=== PATIENT | female | born 1990 | race Two or more races ===

== ENCOUNTER 2016-09-05 09:32 | Emergency (ER) | payer OTHER ==
[2016-09-05 09:43] VITALS: BP 112/60; PULSE 74; TEMP 98.6; BMI 23.5
[2016-09-05] MEDS ORDERED: ONDANSETRON 4 MG/2 ML VIAL IVPUSH ONE (10:14)
[2016-09-05] MEDS ORDERED: SODIUM CHLORIDE 1,000 ML IV STA (10:14)
[2016-09-05] MEDS ORDERED: ONDANSETRON 4 MG/2 ML VIAL ONE (10:21)
[2016-09-05 10:48] LABS: BASOPHIL 0.5 % (0-2.0); EOSINOPHIL 0.5 % (0-4.5); MCH 28.8 pg (25.7-33.7); MCHC 33.9 g/dl (32.0-36.0); MEAN CELL VOLUME 84.8 fl (80-96); MEAN PLT VOLUME 7.4 fl (7.5-11.1); NEUTROPHILS 73.5 % (42.8-82.8); PLATELET COUNT 249 K/MM3 (134-434); WHITE BLOOD COUNT 9.9 K/mm3 (4.0-10.0)
[2016-09-05 11:11] LABS: ALBUMIN 3.8 g/dl (3.4-5.0); ANION GAP 8 (8-16); BILIRUBIN,TOTAL 0.4 mg/dL (0.2-1.0); CALCIUM 8.6 mg/dL (8.5-10.1); CO2 25 mmol/L (21-32); CREATININE 0.5 mg/dL (0.55-1.02); GLUCOSE,RANDOM 87 mg/dL (74-106); MAGNESIUM 2.1 mg/dL (1.8-2.4); SGOT/AST 19 U/L (15-37); SGPT/ALT 23 U/L (12-78); TOT PROT 7.3 g/dl (6.4-8.2)
[2016-09-05 11:12] LABS: ALK PHOS 86 U/L (45-117)
--- NOTE | 2016-09-05 11:27 | PDOC ---
History of Present Illness - General Chief Complaint: Nausea/Vomiting Stated Complaint: CHEST PAIN, VOMITING Time Seen by Provider: 09/05/16 10:04 History Source: Patient Exam Limitations: No Limitations - History of Present Illness Travel History: No Initial Comments: 09/05/16 10:24 26-year-old female presents to the ED with complaints of nausea and vomiting over the past 3 days without aggravating or relieving factors. Patient also states irregular menses and unsure if she is but denies any fever, chills, vaginal discharge, dysuria, diarrhea, recent travel, recent illness or recent sick contacts. Patient denies GI disorders smoking history, or alcohol use, Timing/Duration: reports: intermittent Quality: reports: mild, cramping Abdominal Pain Onset Location: reports: suprapubic ( midmid) Aggravating Factors: improves with: None Alleviating Factors: improves with: None Past History - Past Medical History Allergies/Adverse Reactions: Allergies Allergy/AdvReac Type Severity Reaction Status Date / Time No Known Allergies Allergy Verified 09/05/16 09:40 Home Medications: Ambulatory Orders NK [No Known Home Medication] 09/05/16 Anemia: Yes Asthma: No Cancer: No Cardiac Disorders: No Diabetes: No HTN: No Seizures: No Thyroid Disease: No - Reproductive History LMP Normal: No (irregular) - Immunization History Immunization Up to Date: Yes - Psycho/Social/Smoking Cessation Hx Anxiety: No Suicidal Ideation: No Smoking Status: No Smoking History: Never smoked Have you smoked in the past 12 months: No Number of Cigarettes Smoked Daily: 0 Information on smoking cessation initiated: No Hx Alcohol Use: No Drug/Substance Use Hx: No Hx Substance Use Treatment: No Patient Lives Alone: No Lives with/in: spouse/SO Review of Systems - Review of Systems Able to Perform ROS?: Yes Constitutional: No: Symptoms Reported HEENTM: No: Symptoms Reported Respiratory: No: Symptoms reported Cardiac (ROS): No: Symptoms Reported ABD/GI: Yes: Nausea, Vomiting, Abdominal cramping : No: Symptoms Reported Musculoskeletal: No: Symptoms Reported Integumentary: No: Symptoms Reported Neurological: No: Symptoms reported *Physical Exam - Vital Signs Last Vital Signs Temp Pulse Resp BP Pulse Ox 98.6 F 74 18 112/60 100 09/05/16 09:41 09/05/16 09:41 09/05/16 09:41 09/05/16 09:41 09/05/16 09:41 - Physical Exam General Appearance: Yes: Nourished, Appropriately Dressed. No: Apparent Distress HEENT: negative: Pale Conjunctivae Neck: positive: Normal Thyroid, Supple Respiratory/Chest: positive: Lungs Clear, Normal Breath Sounds. negative: Respiratory Distress, Accessory Muscle Use Cardiovascular: positive: Regular Rhythm, Regular Rate. negative: Murmur Gastrointestinal/Abdominal: positive: Soft, Tenderness (suprapubic. Mild guarding. No rebound) Musculoskeletal: negative: CVA Tenderness Extremity: positive: Normal Capillary Refill Integumentary: positive: Normal Color, Warm, Moist Neurologic: positive: Motor Strength 5/5 (ambulatory) ED Treatment Course - LABORATORY CBC & Chemistry Diagram: 09/05/16 10:40 09/05/16 10:40 - ADDITIONAL ORDERS Additional order review: Laboratory Results 09/05/16 09/05/16 10:40 10:40 Sodium 137 Potassium 3.9 Chloride 104 Carbon Dioxide 25 Anion Gap 8 BUN 10 D Creatinine 0.5 L Creat Clearance w eGFR > 60 Random Glucose 87 Calcium 8.6 Magnesium Cancelled 2.1 Total Bilirubin 0.4 D AST 19 ALT 23 Alkaline Phosphatase 86 D Total Protein 7.3 Albumin 3.8 09/05/16 10:40 RBC 4.60 MCV 84.8 D MCHC 33.9 RDW 13.0 D MPV 7.4 L D Neutrophils % 73.5 Lymphocytes % 20.6 D Monocytes % 4.9 Eosinophils % 0.5 Basophils % 0.5 - Medications Given in the ED: ED Medications Discontinued Medications Generic Name Dose Route Start Last Admin Trade Name Freq PRN Reason Stop Dose Admin Sodium Chloride 1,000 mls @ 1,000 mls/hr 09/05/16 10:14 09/05/16 10:23 Normal Saline - IV 09/05/16 11:13 1,000 mls/hr ASDIR STA Administration Ondansetron HCl 4 mg 09/05/16 10:14 09/05/16 10:23 Zofran Injection IVPUSH 09/05/16 10:15 4 mg ONCE ONE Administration Medical Decision Making - Medical Decision Making 09/05/16 10:25 Nausea vomiting and irregular menses. Patient on exam had suprapubic tenderness without CVA tenderness. Will rule out UTI, , electrolyte imbalance. .Patient ordered for CBC, comp, magnesium, IV fluids, Zofran urinalysis urine . 09/05/16 11:27 Laboratory Tests 09/05/16 09/05/16 09/05/16 10:40 10:40 10:40 WBC 9.9 Hgb 13.2 D Hct 39.0 D Neutrophils % 73.5 Sodium 137 Potassium 3.9 Chloride 104 Carbon Dioxide 25 Anion Gap 8 BUN 10 D Creatinine 0.5 L Random Glucose 87 Calcium 8.6 Magnesium 2.1 Urine Nitrite Pending Urine HCG, Qual Positive Ordered for beta hCG and will order ultrasound based on patient's clinical exam of suprapubic tenderness. 09/05/16 14:19 Laboratory Tests 09/05/16 10:40 Beta HCG, Quant [id number] patient tolerating crackers and juice. Ultrasound shows an IUP at 5 weeks 6 days with heart rate of 1 50bpm. There is a corpus luteal cyst in the left ovary. No signs of torsion *DC/Admit/Observation/Transfer Diagnosis at time of Disposition: Nausea and vomiting during - Discharge Dispostion Disposition: HOME Condition at time of disposition: Good - Patient Instructions Printed Discharge Instructions: Nausea and Vomiting-Adult, DI for -- Discomforts and Remedies Additional Instructions: Please eat small frequent bland food and drink plenty of water. Please follow-up with your BINDERY MACHINE SETTER to discuss today's visit.
[2016-09-05 11:34] LABS: URINE APPEARANCE CLEAR; URINE BILIRUBIN NEGATIVE (NEGATIVE); URINE BLOOD NEGATIVE (NEGATIVE); URINE COLOR LT. YELLOW; URINE GLUCOSE (UA) NEGATIVE (NEGATIVE); URINE KETONE NEGATIVE (NEGATIVE); URINE LEUK ESTERASE NEGATIVE (NEGATIVE); URINE NITRITE NEGATIVE (NEGATIVE); URINE PROTEIN NEGATIVE (NEGATIVE); URINE UROBILINOGEN 0.2 E.U/dl E.U./dl (0.2-1.0)
== END 2016-09-05 14:52 | disposition home or self-care (01) ==
LOC: JER 09:32
PROC: 3E033GC Introduction of Other Therapeutic Substance into Peripheral Vein, Percutaneous Approach (ICD-10-PCS; principal; 2016-09-05)
DX: O21.0 Mild hyperemesis gravidarum (principal); O34.81 Maternal care for other abnormalities of pelvic organs, first trimester; N83.12 Corpus luteum cyst of left ovary; Z3A.01 Less than 8 weeks gestation of pregnancy
CPT/HCPCS: 36415; 76801-TC; 80053; 81003; 83735; 84702; 84703; 85025; 99283-25

== ENCOUNTER 2016-09-18 12:42 | Emergency (ER) | payer OTHER ==
[2016-09-18 13:13] VITALS: BP 118/62; PULSE 71; TEMP 98.3; BMI 25.7
[2016-09-18] MEDS ORDERED: ONDANSETRON 4 MG/2 ML VIAL ONE (17:08)
--- NOTE | 2016-09-18 17:14 | PDOC ---
History of Present Illness - General Chief Complaint: Pain, Acute Stated Complaint: ABD PAIN, 10 WKS Time Seen by Provider: 09/18/16 16:18 History Source: Patient Exam Limitations: No Limitations - History of Present Illness Initial Comments: 09/18/16 17:23 Patient came to our mid for evaluation of nausea and vomiting worsening over the past few days. Is 10 weeks , has first visit tomorrow. States had hyperemesis with her previous pregnancies, 3 para 2. Is not currently taking any medication, denies fever, bowel changes, any problems with urine. 09/18/16 20:20 Timing/Duration: unsure, constant, getting worse Severity: mild, moderate Associated Symptoms: reports: loss of appetite, malaise, nausea/vomiting. denies: cough, fever/chills Past History - Travel Traveled outside of the country in the last 30 days: No Close contact w/someone who was outside of country & ill: No - Past Medical History Allergies/Adverse Reactions: Allergies Allergy/AdvReac Type Severity Reaction Status Date / Time No Known Allergies Allergy Verified 09/18/16 13:11 Home Medications: Ambulatory Orders NK [No Known Home Medication] 09/05/16 Anemia: Yes Asthma: No Cancer: No Cardiac Disorders: No Diabetes: No HTN: No Seizures: No Thyroid Disease: No - Immunization History Immunization Up to Date: Yes - Psycho/Social/Smoking Cessation Hx Anxiety: No Suicidal Ideation: No Smoking Status: No Smoking History: Never smoked Have you smoked in the past 12 months: No Number of Cigarettes Smoked Daily: 0 Information on smoking cessation initiated: No Hx Alcohol Use: No Drug/Substance Use Hx: No Substance Use Type: None Hx Substance Use Treatment: No Review of Systems - Review of Systems Able to Perform ROS?: Yes Is the patient limited [place] proficient: Yes Constitutional: Yes: Symptoms Reported, See HPI, Loss of Appetite, Malaise, Weakness. No: Fever HEENTM: Yes: See HPI. No: Symptoms Reported Respiratory: Yes: Symptoms reported, See HPI Cardiac (ROS): Yes: See HPI ABD/GI: Yes: Symptoms Reported : No: Symptoms Reported All Other Systems: Reviewed and Negative *Physical Exam - Vital Signs Last Vital Signs Temp Pulse Resp BP Pulse Ox 98.3 F 71 18 118/62 100 09/18/16 13:12 09/18/16 13:12 09/18/16 13:12 09/18/16 13:12 09/18/16 13:12 - Physical Exam General Appearance: Yes: Nourished, Appropriately Dressed, Apparent Distress, Mild Distress HEENT: positive: KALIA, Normal ENT Inspection, Normal Voice, TMs Normal, Pharynx Normal Neck: positive: Supple. negative: Tender Respiratory/Chest: positive: Lungs Clear, Normal Breath Sounds Cardiovascular: positive: Regular Rhythm Gastrointestinal/Abdominal: positive: Normal Bowel Sounds, Tender (some tenderness reproduced with deep palpation to the left upper quadrant and midepigastric area. Patient states is painful when she sits up and uses her stomach musculature. Has no tenderness to the right upper quadrant, no no tenderness to the lower quadrants, no rebound or guarding.), Soft. negative: Distended, Guarding, Rebound Musculoskeletal: positive: Normal Inspection Extremity: positive: Normal Capillary Refill, Normal Inspection Integumentary: positive: Dry, Warm, Pale Neurologic: positive: airplane tester II-XII NML intact, Fully Oriented, Alert, Normal Mood/ Affect, Normal Response, Motor Strength 12/29 ED Treatment Course - LABORATORY CBC & Chemistry Diagram: 09/18/16 17:00 09/18/16 17:00 Medical Decision Making - Medical Decision Making 09/18/16 17:33 Upper emesis, will treat with fluids, Zofran and reevaluate 09/18/16 18:20 09/18/16 20:22 Patient much improved after 2 L of IV fluid, Zofran. Is hungry, and able to tolerate by mouth apple juice and crackers. Will be discharged, and follow-up as planned with her appointment tomorrow. 09/18/16 20:29 *DC/Admit/Observation/Transfer Diagnosis at time of Disposition: Hyperemesis Qualifiers: Vomiting type: unspecified Nausea presence: with nausea Qualified Code(s): R11.2 - Nausea with vomiting, unspecified - Discharge Dispostion Disposition: HOME Condition at time of disposition: Stable Admit: No - Patient Instructions Printed Discharge Instructions: DI for Hyperemesis Gravidarum Additional Instructions: Rest, drink lots of fluids: Teas, water, soups Anay julio cesar, carbonated beverages for the bubbles May try peppermint teas Avoid heavy , spicy or fatty foods until symptoms have resolved Continue [id number] medications for symptomatic relief Tylenol for fever and pain Followup with private physician in one to 2 days as needed Return to emergency department for worsened symptoms, fevers, dehydration - Post Discharge Activity Work/School Note: Back to Work
[2016-09-18] MEDS ORDERED: SODIUM CHLORIDE 1,000 ML IV ONE (17:17)
[2016-09-18] MEDS ORDERED: ONDANSETRON 4 MG/2 ML VIAL IVPB ONE (17:19)
[2016-09-18 17:39] LABS: BASOPHIL 0.4 % (0-2.0); EOSINOPHIL 0.5 % (0-4.5); MCH 28.2 pg (25.7-33.7); MCHC 33.6 g/dl (32.0-36.0); NEUTROPHILS 78.1 % (42.8-82.8); PLATELET COUNT 266 K/MM3 (134-434); RDW 13.2 % (11.6-15.6); WHITE BLOOD COUNT 12.3 K/mm3 (4.0-10.0)
[2016-09-18 17:41] LABS: URINE APPEARANCE CLEAR; URINE BILIRUBIN NEGATIVE (NEGATIVE); URINE BLOOD NEGATIVE (NEGATIVE); URINE COLOR YELLOW; URINE GLUCOSE (UA) NEGATIVE (NEGATIVE); URINE KETONE NEGATIVE (NEGATIVE); URINE NITRITE NEGATIVE (NEGATIVE); URINE PROTEIN NEGATIVE (NEGATIVE); URINE UROBILINOGEN NEGATIVE E.U./dl (0.2-1.0)
[2016-09-18 17:44] LABS: URINE LEUK ESTERASE 1+ (NEGATIVE)
[2016-09-18 17:49] LABS: URINE MUCUS MANY; URINE RBC 1 /hpf (0-3); URINE WBC 1 /hpf (3-5)
[2016-09-18 18:42] LABS: ALBUMIN 3.5 g/dl (3.4-5.0); ANION GAP 9 (8-16); CALCIUM 8.2 mg/dL (8.5-10.1); CO2 23 mmol/L (21-32); GLUCOSE,RANDOM 75 mg/dL (74-106)
[2016-09-18 18:48] LABS: ALK PHOS 78 U/L (45-117); BILIRUBIN,TOTAL 0.3 mg/dL (0.2-1.0); CREATININE 0.4 mg/dL (0.55-1.02); SGOT/AST 16 U/L (15-37); SGPT/ALT 19 U/L (12-78); TOT PROT 7.3 g/dl (6.4-8.2)
== END 2016-09-18 21:18 | disposition home or self-care (01) ==
LOC: JERFT 12:42 → JER 12:42 → JERFT 21:18
PROC: 3E0337Z Introduction of Electrolytic and Water Balance Substance into Peripheral Vein, Percutaneous Approach (ICD-10-PCS; principal; 2016-09-18)
PROC: 3E033GC Introduction of Other Therapeutic Substance into Peripheral Vein, Percutaneous Approach (ICD-10-PCS; 2016-09-18)
DX: O21.0 Mild hyperemesis gravidarum (principal); Z3A.10 10 weeks gestation of pregnancy
CPT/HCPCS: 36415; 80053; 81003; 81015; 83690; 84702; 85025; 96361; 96374; 99281-25

== ENCOUNTER 2017-03-21 15:11 | Emergency (ER) | payer OTHER ==
[2017-03-21 15:17] VITALS: BP 121/67; PULSE 87; TEMP 98.2; BMI 31.4
--- NOTE | 2017-03-21 16:26 | PDOC ---
History of Present Illness - General Chief Complaint: Rash Stated Complaint: GENITAL ITCHING/REDNESS (31 WKS ) Time Seen by Provider: 03/21/17 15:56 History Source: Patient Exam Limitations: No Limitations - History of Present Illness Initial Comments: 03/21/17 19:11 34 weeks , comes in with complaints of 2 sites of very pruritic rash to her abdomen. Denies drainage, denies vesicles, denies fever or any other family member affected with same. Has not used any medications for relief of itching. has been uneventful thus far Timing/Duration: reports: just prior to arrival, constant Location: reports: none Associated Symptoms: reports: denies symptoms Past History - Travel Traveled outside of the country in the last 30 days: No Close contact w/someone who was outside of country & ill: No - Past Medical History Allergies/Adverse Reactions: Allergies Allergy/AdvReac Type Severity Reaction Status Date / Time No Known Allergies Allergy Verified 03/21/17 15:15 Home Medications: Ambulatory Orders Hydrocortisone [Cortisone] 28 gm TP BID #1 cream..g. 03/21/17 Anemia: Yes Asthma: No Cancer: No Cardiac Disorders: No Diabetes: No HTN: No Seizures: No Thyroid Disease: No - Immunization History Immunization Up to Date: Yes - Psycho/Social/Smoking Cessation Hx Anxiety: No Suicidal Ideation: No Smoking Status: No Smoking History: Never smoked Have you smoked in the past 12 months: No Number of Cigarettes Smoked Daily: 0 Hx Alcohol Use: No Drug/Substance Use Hx: No Substance Use Type: None Hx Substance Use Treatment: No Review of Systems - Review of Systems Able to Perform ROS?: Yes Is the patient limited Citizen [place] proficient: Yes Constitutional: Yes: See HPI. No: Symptoms Reported, Chills, Fever, Malaise HEENTM: Yes: See HPI. No: Symptoms Reported Respiratory: Yes: See HPI. No: Symptoms reported Musculoskeletal: Yes: Symptoms Reported Integumentary: Yes: Symptoms Reported, Lesions (2 sites to abdomen only), Pruritus, Rash Neurological: No: Symptoms reported Endocrine: No: Symptoms Reported All Other Systems: Reviewed and Negative *Physical Exam - Vital Signs Last Vital Signs Temp Pulse Resp BP Pulse Ox 98.2 F 87 20 121/67 99 03/21/17 15:16 03/21/17 15:16 03/21/17 15:16 03/21/17 15:16 03/21/17 15:16 - Physical Exam General Appearance: Yes: Nourished, Appropriately Dressed. No: Apparent Distress, Mild Distress HEENT: positive: KALIA, Normal ENT Inspection, TMs Normal, Pharynx Normal Respiratory/Chest: positive: Chest Tender Gastrointestinal/Abdominal: positive: Other (34 week abdomen) Musculoskeletal: positive: Normal Inspection Extremity: positive: Normal Capillary Refill Integumentary: positive: Normal Color, Erythema, Rash (faint leak erythematous patches to left and right abdomen that david faintly with superficial nonblanching lesions at Center each site. Probable abrasion from itching. No vesicles, no scabbing, is bilateral across midline. ) Neurologic: positive: round boner II-XII NML intact, Normal Response, Motor Strength 5/5 Progress Note - Progress Note Progress Note: Secondary abrasion secondary to pruritic superficial rash to her abdomen. We will treat with hydrocortisone cream and refer to OB as needed *DC/Admit/Observation/Transfer Diagnosis at time of Disposition: Dermatitis - Discharge Dispostion Disposition: HOME Condition at time of disposition: Stable Admit: No - Prescriptions Prescriptions: Hydrocortisone [Cortisone] 28 gm TP BID #1 cream..g. - Referrals Referrals: Doc Moore MD [Primary Care Provider] - - Patient Instructions Printed Discharge Instructions: DI for Contact Dermatitis Additional Instructions: Rest, keep cool and dry- avoid strenuous activity or hot /humid environments Less hot showers, no abrasive soaps May use heavy creams like Eucerin or Cetaphil to keep skin moist May apply Aveeno, calamine lotion, [id number] hydrocortisone creams as needed for symptoms May use Benadryl at night for antihistamine use to help with itching May use [id number] hydrocortisone cream on all areas except face Try to identify cause for rash and avoid exposures Followup with PMD in one week if no resolution Make appointment with caravan park and camping ground manager for evaluation when possible
== END 2017-03-21 16:34 | disposition home or self-care (01) ==
LOC: JERFT 15:11
DX: O99.89 Other specified diseases and conditions complicating pregnancy, childbirth and the puerperium (principal); L25.9 Unspecified contact dermatitis, unspecified cause; Z3A.34 34 weeks gestation of pregnancy
CPT/HCPCS: 99281-25

== ENCOUNTER 2017-03-29 07:05 | Inpatient (IN) | payer OTHER ==
[~2017-03-29 07:05] MED LIST: AMPICILLIN - 2 GM in SODIUM CHLORIDE 100 ML IVPB ONE
[2017-03-29] MEDS ORDERED: AMPICILLIN - 2 GM in SODIUM CHLORIDE 100 ML IVPB ONE (07:15)
[2017-03-29 07:37] LABS: BASOPHIL 0.3 % (0-2.0); EOSINOPHIL 0.6 % (0-4.5); MCH 31.2 pg (25.7-33.7); MCHC 34.8 g/dl (32.0-36.0); MEAN CELL VOLUME 89.6 fl (80-96); MEAN PLT VOLUME 7.7 fl (7.5-11.1); NEUTROPHILS 77.2 % (42.8-82.8); PLATELET COUNT 167 K/MM3 (134-434); WHITE BLOOD COUNT 10.4 K/mm3 (4.0-10.0)
[2017-03-29 07:50] LABS: INR 0.92 (0.82-1.09); PROTHROMBIN TIME (PATIENT) 10.1 SEC (9.98-11.88)
[2017-03-29 07:51] VITALS: BMI 33.7
[2017-03-29 07:53] LABS: ACTIVATED PTT 28.6 SECONDS (26.9-34.4)
[2017-03-29 07:58] LABS: ANION GAP 9 (8-16); CALCIUM 8.1 mg/dL (8.5-10.1); CO2 24 mmol/L (21-32); CREATININE 0.5 mg/dL (0.55-1.02); GLUCOSE,RANDOM 79 mg/dL (74-106)
[2017-03-29] MEDS ORDERED: CITRIC ACID/SODIUM CITRATE 30 ML UNIT-DOSE CUP PO ONE (07:59)
[2017-03-29] MEDS ORDERED: ELECTROLYTE-148 SOLN 500 ML IV ONE (07:59)
--- NOTE | 2017-03-29 08:20 | HP ---
Past Medical History - Admission Chief Complaint: Labor pain History of Present Illness: 26 yo @ 36 weeks gestation, presents c/o labor pain associated with rupture of membrane. History Source: Patient Limitations to Obtaining History: No Limitations - Past Medical History ...: 3 ...Para: 2 ...Term: 1 ...: 1 ...Spon : 0 ...Induced : 0 ...LMP: 07/31/16 ... Weeks Gestation by Dates: 34.3 ...EDC by Dates: 05/07/17 ...EDC by Sono: 04/27/17 - Past Surgical History Past Surgical History: Yes: Hx Myomectomy: No Hx Transabdominal Cerclage: No - Smoking History Smoking history: Never smoked Have you smoked in the past 12 months: No Aproximately how many cigarettes per day: 0 - Alcohol/Substance Use Hx Alcohol Use: No History of Substance Use: reports: None - Social History Usual Living Arrangement: Yes: With Spouse History of Recent Travel: No Home Medications - Allergies Allergies/Adverse Reactions: Allergies Allergy/AdvReac Type Severity Reaction Status Date / Time No Known Allergies Allergy Verified 03/21/17 15:15 - Home Medications Home Medications: Ambulatory Orders Irf528/Iron Fumarate/FA/Dss [ 19 Tablet] 1 each PO DAILY 03/25/17 Family Disease History - Family Disease History Family History: Unremarkable Review of Systems - Review of Systems Constitutional: reports: No Symptoms Eyes: reports: No Symptoms HENT: reports: No Symptoms Neck: reports: No Symptoms Cardiovascular: reports: No Symptoms Respiratory: reports: No Symptoms Gastrointestinal: reports: No Symptoms Genitourinary: reports: Pain Breasts: reports: No Symptoms Reported Musculoskeletal: reports: No Symptoms Integumentary: reports: No Symptoms Neurological: reports: No Symptoms Endocrine: reports: No Symptoms Hematology/Lymphatic: reports: No Symptoms Psychiatric: reports: No Symptoms Pain Intensity: 8 Physical Exam - Maternity Vital Signs: Vital Signs Temperature 98.2 F 03/29/17 07:05 Pulse Rate 76 03/29/17 07:05 Respiratory Rate 18 03/29/17 07:05 Blood Pressure 140/86 03/29/17 07:05 O2 Sat by Pulse Oximetry (%) Constitutional: Yes: Well Nourished Eyes: Yes: Conjunctiva Clear Neck: Yes: Supple, Trachea Midline Cardiovascular: Yes: Regular Rate and Rhythm Lungs: Clear to auscultation - Abdominal Exam/OB Number of Fetuses: Single Presentation: Vertex Intensity: Mod/Strong Monitor Mode: External - Vaginal Exam/OB Vaginal Bleediing: No Dilatation (cm): 6 Effacement (%): 80 Amniotic Membrane Status: Ruptured Amniotic Fluid: Yes: Clear Station: -2 - Physical Exam Musculoskeletal: Yes: WNL ...Motor Strength: WNL Psychiatric: Yes: Alert, Oriented - Labs Lab Results: CBC, BMP 03/29/17 07:20 03/29/17 07:20 Problem List - Problems (1) Previous delivery affecting Code(s): O34.219 - MATERNAL CARE FOR UNSP TYPE SCAR FROM PREVIOUS DEL Assessment/Plan IUP @ 36 weeks Previous in labor Admit to L&D Prep and shave for repeat
[2017-03-29] MEDS ORDERED: FENTANYL/BUPIVACAINE/NS/PF - PCEA - 50 ML DISP.SYRIN EP SCH (09:30)
[2017-03-29] MEDS ORDERED: AMPICILLIN - 1 GM in SODIUM CHLORIDE 100 ML IVPB SCH (11:00)
[2017-03-29] MEDS ORDERED: BISACODYL 10 MG SUPP.RECT RC PRN (13:44)
[2017-03-29] MEDS ORDERED: BENZOCAINE 20% 57 GM BOTTLE TP PRN (13:44)
[2017-03-29] MEDS ORDERED: WITCH HAZEL 50% (TUCKS) 40 PAD/JAR PAD TP PRN (13:44)
[2017-03-29] MEDS ORDERED: BENZOCAINE 28 GM HEMORRHOIDAL OINTMENT TP PRN (13:44)
[2017-03-29] MEDS ORDERED: METHYLERGONOVINE MALEATE 0.2 MG/1 ML AMP IM PRN (13:44)
[2017-03-29] MEDS ORDERED: D5W-LR W/ 20 UNITS OXYTOCIN 1,000 ML IV SCH (13:45)
--- NOTE | 2017-03-29 13:49 | PN ---
Delivery - Delivery Vaginal Delivery: V-Carlos Type of Anesthesia: Epidural Episiotomy/Laceration: Perineal Extension/lac, 1st degree EBL (cc): 300 Delivery, Single - Stages of Labor Date 1st Stage Initiatied: 03/29/17 Time 1st Stage Initiated: 06:00 Date 2nd Stage Initiated: 03/29/17 Time 2nd Stage Initiated: 12:40 Date of Delivery: 03/29/17 Time of Delivery: 13:01 Time Placenta Delivered: 13:05 - Condition of Finish Specialist/Sewage Disposal Engineer Present: Yes Name: Enio Wells Infant Gender: Male Weight: 6 lb 13 oz Position: OA Total Hours ROM (Hrs/Mins): 8H4M - 1 Minute Total Score: 9 5 Minutes Total Score: 9 - Feeding Plan Initial Plan: Elected not to breastfeed exclusively throughout hospitalization Remarks - Remarks Remarks: Vaginal after previous of a live infant boy. Nose / Oropharynx suctioned @ perineum. Nuchal cord around the right arm released, clamped and cut. Placenta expelled spontaneously intact. Laceration repaired with 2.0 Chromic.
[2017-03-29] MEDS: ACETAMINOPHEN 325 MG TABLET (FP) PO PRN ×2 (14:00→19:22)
[2017-03-29] MEDS: FERROUS SO4 325 MG TABLET (FP) PO SCH (17:41)
[2017-03-29] MEDS: IBUPROFEN 600 MG TABLET (FP) PO PRN (19:22)
--- NOTE | 2017-03-30 07:24 | PN ---
Progress Note (short form) - Note Progress Note: ppd1 doing well, no c/o ,no excess vaginal bleeding Current Medications Generic Name Dose Route Start Last Admin Trade Name Freq PRN Reason Stop Dose Admin Acetaminophen 650 mg 03/29/17 13:44 03/29/17 19:22 Tylenol - PO 650 mg Q3H PRN Administration PAIN Benzocaine 1 applic 03/29/17 13:44 Americaine Ointment - TP PRN PRN PAIN Benzocaine 1 spray 03/29/17 13:44 Americaine 20% [place] - TP PRN PRN PAIN Bisacodyl 10 mg 03/29/17 13:44 Dulcolax Suppository - RC PRN PRN CONSTIPATION Ferrous Sulfate 325 mg 03/29/17 17:30 03/29/17 17:41 Feosol - PO 325 mg TIDCM HUGH Administration Dextrose/Lactated Ringer's 1,000 mls @ 125 mls/hr 03/29/17 13:45 03/29/17 13:51 Pitocin 20 Units In D5-Lr - IV 125 mls/hr ASDIR HUGH Administration Ibuprofen 600 mg 03/29/17 13:44 03/29/17 19:22 Motrin - PO 600 mg Q4H PRN Administration PAIN Methylergonovine Maleate 0.2 mg 03/29/17 13:44 Methergine Injection - IM Q4H PRN EXCESSIVE BLEEDING (L&D) Multivit/Folic Acid/Iron 1 tab 03/30/17 10:00 Vitamins ([facility]) - PO DAILY HUGH Senna/Docusate Sodium 2 tablet 03/30/17 22:00 Pericolace - PO HS PRN CONSTIPATION Witch Shira/Glycerin 1 pad 03/29/17 13:44 Tucks Pads - TP PRN PRN PAIN Last Vital Signs Temp Pulse Resp BP Pulse Ox 97.6 F 71 18 125/88 99 03/30/17 06:00 03/30/17 06:00 03/30/17 06:00 03/30/17 06:00 03/29/17 09:05 abdomen soft, uterus firm, non tender lochia mild no calf tenderness plan cbc,, d/c home in am
[2017-03-30] MEDS: IBUPROFEN 600 MG TABLET (FP) PO PRN ×2 (07:41→17:11)
[2017-03-30] MEDS: FERROUS SO4 325 MG TABLET (FP) PO SCH ×3 (07:41→17:09)
[2017-03-30] MEDS: ACETAMINOPHEN 325 MG TABLET (FP) PO PRN ×2 (07:42→17:12)
[2017-03-30 08:18] LABS: BASOPHIL 0.3 % (0-2.0); MCH 30.8 pg (25.7-33.7); MCHC 34.3 g/dl (32.0-36.0); MEAN CELL VOLUME 89.7 fl (80-96); MEAN PLT VOLUME 7.7 fl (7.5-11.1); NEUTROPHILS 81.5 % (42.8-82.8); PLATELET COUNT 146 K/MM3 (134-434); RDW 14.9 % (11.6-15.6); WHITE BLOOD COUNT 14.4 K/mm3 (4.0-10.0)
[2017-03-30] MEDS: PRENATAL VITAMINS W/ FOLIC ACID TABLET (FP) PO SCH (10:12)
[2017-03-30] MEDS ORDERED: SENNOSIDES/DOCUSATE COMBO (SENNA PLUS) TABLET (UD) PO PRN (22:00)
--- NOTE | 2017-03-31 01:48 | PN ---
Post Progress Note Post Day: 2 Type of Delivery: Vital Signs: Vital Signs Temperature 98.1 F 03/30/17 22:00 Pulse Rate 71 03/30/17 22:00 Respiratory Rate 18 03/30/17 22:00 Blood Pressure 118/76 03/30/17 22:00 O2 Sat by Pulse Oximetry (%) 99 03/29/17 09:05 Breast Exam: Yes: Soft Uterus: Yes: Fundus Firm Abdomen/GI: Yes: Abdomen soft Lochia: Yes: Rubra Lochia, amount: Small Extremities: Yes: Calves non-tender Perineum: Yes: Intact Activity: Ambulating - Labs Labs: CBC WBC 14.4 K/mm3 (4.0-10.0) H D 03/30/17 07:00 RBC 3.75 M/mm3 (3.60-5.2) 03/30/17 07:00 Hgb 11.5 GM/dL (10.7-15.3) D 03/30/17 07:00 Hct 33.7 % (32.4-45.2) D 03/30/17 07:00 MCV 89.7 fl (80-96) 03/30/17 07:00 MCH 30.8 pg (25.7-33.7) 03/30/17 07:00 MCHC 34.3 g/dl (32.0-36.0) 03/30/17 07:00 RDW 14.9 % (11.6-15.6) 03/30/17 07:00 Plt Count 146 K/MM3 (134-434) 03/30/17 07:00 MPV 7.7 fl (7.5-11.1) 03/30/17 07:00 Neutrophils % 81.5 % (42.8-82.8) 03/30/17 07:00 Lymphocytes % 12.5 % (8-40) D 03/30/17 07:00 Monocytes % 4.7 % (3.8-10.2) 03/30/17 07:00 Eosinophils % 1.0 % (0-4.5) 03/30/17 07:00 Basophils % 0.3 % (0-2.0) 03/30/17 07:00 Assessment/Plan as [place] home today
[2017-03-31] MEDS: FERROUS SO4 325 MG TABLET (FP) PO SCH ×2 (08:39→13:39)
[2017-03-31] MEDS: PRENATAL VITAMINS W/ FOLIC ACID TABLET (FP) PO SCH (09:13)
[2017-03-31 09:49] VITALS: BP 135/90; PULSE 74; TEMP 98.9
== END 2017-03-31 13:40 | disposition home or self-care (01) | DRG 560 ==
LOC: JLDR 07:05 → J3W 15:11
PROVIDERS: ADMIT Obstetrics & Gynecology; ATTEND Obstetrics & Gynecology
PROC: 0HQ9XZZ Repair Perineum Skin, External Approach (ICD-10-PCS; principal; 2017-03-29)
PROC: 10E0XZZ Delivery of Products of Conception, External Approach (ICD-10-PCS; 2017-03-29)
PROC: 0W8NXZZ Division of Female Perineum, External Approach (ICD-10-PCS; 2017-03-29)
DX: O70.0 First degree perineal laceration during delivery (principal); O60.14X0 Preterm labor third trimester with preterm delivery third trimester, not applicable or unspecified; Z3A.36 36 weeks gestation of pregnancy; O34.211 Maternal care for low transverse scar from previous cesarean delivery; N85.8 Other specified noninflammatory disorders of uterus; Z37.0 Single live birth
CPT/HCPCS: 36415; 59409; 80048; 85025; 85610; 85730; 86593; 86850; 86900; 86901

== ENCOUNTER 2019-07-20 15:41 | Emergency (ER) | payer OTHER ==
[2019-07-20 15:52] VITALS: BP 119/66; PULSE 91; TEMP 98; BMI 30.2
--- NOTE | 2019-07-20 16:18 | PDOC ---
History of Present Illness - General Chief Complaint: Cold Symptoms Stated Complaint: ABD PAIN/VOMITING Time Seen by Provider: 07/20/19 16:01 History Source: Patient Exam Limitations: No Limitations - History of Present Illness Initial Comments: 07/20/19 17:58 HISTORY OF PRESENT ILLNESS: 29-year-old woman denies medical history presents to the emergency department for evaluation of moist productive cough, sore throat with nausea and vomiting over the past 5 days. Patient denies taking any analgesia or antipyretics. She denies sick contacts. Patient reports her last menstrual period started 06/05. Patient reports she believes she is not . She denies dysuria, hematuria, diarrhea, constipation or rectal bleeding. No recent travel or sick contacts. PAST MEDICAL HISTORY: Denies past medical history SURGICAL HISTORY: Denies ALLERGIES: No known drug allergies REVIEW OF SYSTEMS General/Constitutional: Denies fever or chills. Denies weakness, weight change. HEENT: See HPI Cardiovascular: Denies chest pain or shortness of breath. Respiratory: See HPI Gastrointestinal: See HPI Genitourinary: Denies dysuria, frequency, or change in urination. Musculoskeletal: Denies joint or muscle swelling or pain. Denies neck or back pain. Skin and breasts: Denies rash or easy bruising. Neurologic: Denies headache, vertigo, loss of consciousness, or loss of sensation. Psychiatric: Denies depression or anxiety. Endocrine: Denies increased thirst. Denies abnormal weight change. Hematologic/Lymphatic: Denies anemia, easy bleeding, or history of blood clots. Allergic/Immunologic: Denies hives or skin allergy. Denies latex allergy. PHYSICAL EXAM General Appearance: Well-appearing, appropriately dressed. No apparent distress , no intoxication. HEENT: EOMI, PERRLA, normal ENT inspection, normal voice, TMs normal. No conjunctival pallor. No photophobia, scleral icterus. Oropharynx mildly erythematous without tonsillar swelling, erythema or exudates present. Neck: Supple. Trachea midline. No tenderness, rigidity, carotid bruit, stridor , lymphadenopathy, or thyromegaly. Respiratory/Chest: Lungs CTAB. No shortness of breath, chest tenderness, respiratory distress, accessory muscle use. No crackles, rales, rhonchi, stridor , wheezing, dullness Cardiovascular: RRR. S1, S2. No JVD, murmur, bradycardia, tachycardia. Gastrointestinal/Abdominal: Normal bowel sounds. Abdomen soft, non-distended. Right pelvic tenderness without rebound tenderness. No organomegaly, pulsatile mass, guarding, hernia, hepatomegaly, splenomegaly. Lymphatic: No adenopathy, tenderness. Integumentary: Appropriate color, dry, warm. No cyanosis, erythema, jaundice or rash Neurologic: freight clerk II-XII intact. Fully oriented, alert. Appropriate mood/affect. Motor strength 5/5. No appreciable EOM palsy, facial droop or sensory deficit. 07/20/19 18:10 Past History - Past Medical History Allergies/Adverse Reactions: Allergies Allergy/AdvReac Type Severity Reaction Status Date / Time No Known Allergies Allergy Verified 07/20/19 16:55 Home Medications: Ambulatory Orders Cephalexin Monohydrate [Keflex -] 500 mg PO BID #20 capsule 07/20/19 Anemia: Yes Asthma: No Cancer: No Cardiac Disorders: No Diabetes: No HTN: No Seizures: No Thyroid Disease: No - Immunization History Immunization Up to Date: Yes - Psycho Social/Smoking Cessation Hx Smoking Status: No Smoking History: Never smoked Have you smoked in the past 12 months: No Number of Cigarettes Smoked Daily: 0 Hx Alcohol Use: No Drug/Substance Use Hx: No Substance Use Type: None Hx Substance Use Treatment: No *Physical Exam - Vital Signs Last Vital Signs Temp Pulse Resp BP Pulse Ox 98 F 91 H 20 119/66 100 07/20/19 15:45 07/20/19 15:45 07/20/19 15:45 07/20/19 15:45 07/20/19 15:45 ED Treatment Course - LABORATORY CBC & Chemistry Diagram: 07/20/19 16:55 07/20/19 16:55 Medical Decision Making - Medical Decision Making 07/20/19 18:03 A/P: 29-year-old woman 5 days of upper respiratory symptoms with mild nausea and vomiting Tenderness to palpation in the right pelvic region Labs including beta hCG, type and screen Urinalysis, urine , urine culture Transvaginal ultrasound reassess 07/20/19 18:29 Ultrasound is read by imaging on-call: Single live intrauterine gestation with heart rate 122 bpm. Estimated gestational age by ultrasound criteria 6 weeks and 5 days. There are no apparent adnexal abnormalities on this study. Urinalysis notable for 3+ leuk esterase with 54 WBCs on high-power field. Beta hCG 40,470. Have her follow-up with her primary doctor. As patient is I will treat for urinary tract infection Discharge - Discharge Information Problems reviewed: Yes Clinical Impression/Diagnosis: UTI (urinary tract infection) during Qualifiers: Trimester: first trimester Qualified Code(s): O23.41 - Unspecified infection of urinary tract in , first trimester Condition: Fair Disposition: HOME - Admission No - Additional Discharge Information Prescriptions: Cephalexin Monohydrate [Keflex -] 500 mg PO BID #20 capsule - Follow up/Referral - Patient Discharge Instructions Patient Printed Discharge Instructions: DI for Urinary Tract Infection (UTI), DI for Abdominal Pain -- Early Additional Instructions: Rest, drink lots of fluids: Teas, water, soups Start taking vitamins. Avoid contact with others until fevers and symptoms resolved Lots of handwashing and good hygiene Continue [id number] medications for symptomatic relief Tylenol or Motrin for fever and pain Continue all of antibiotics until completed Followup with [facility] in one week for repeat urinalysis/reevaluation Return to emergency department for worsened symptoms, fevers, dehydration - Post Discharge Activity
[2019-07-20 16:45] LABS: EPI CELLS 5.7 /HPF (0-5/HPF); HYALINE CASTS 2 /lpf (0-8); PH,URINE 5.5 (5.0-8.0); URINE APPEARANCE CLOUDY; URINE BILIRUBIN NEGATIVE (NEGATIVE); URINE COLOR YELLOW; URINE GLUCOSE (UA) NEGATIVE (NEGATIVE); URINE KETONE NEGATIVE (NEGATIVE); URINE LEUK ESTERASE 3+ (NEGATIVE); URINE NITRITE NEGATIVE (NEGATIVE); URINE PROTEIN NEGATIVE (NEGATIVE); URINE UROBILINOGEN 0.2 mg/dL (0.2-1.0); URINE WBC 54 /hpf (0-5)
[2019-07-20 17:50] LABS: BASO % 0.4 % (0-2.0); EOS % 0.4 % (0-4.5); HEMATOCRIT 27.9 % (32.4-45.2); HEMOGLOBIN 8.3 GM/dL (10.7-15.3); LYMPH % 16.8 % (8-40); MCHC 29.9 g/dl (32.0-36.0); MEAN CELL VOLUME 57.5 fl (80-96); MEAN PLT VOLUME 8.7 fl (7.5-11.1); MONO % 5.1 % (3.8-10.2); NEUT % 77.3 % (42.8-82.8); PLATELET COUNT 385 K/MM3 (134-434); RBC 4.85 M/mm3 (3.60-5.2); RDW 20.5 % (11.6-15.6); WHITE BLOOD COUNT 11.3 K/mm3 (4.0-10.0)
[2019-07-20 17:52] LABS: MCH 17.2 pg (25.7-33.7)
[2019-07-20 17:55] LABS: BLOOD UREA NITROGEN 6.4 mg/dL (7-18); CALCIUM 8.7 mg/dL (8.5-10.1); CREATININE 0.5 mg/dL (0.55-1.3); POTASSIUM 3.6 mmol/L (3.5-5.1)
[2019-07-20 18:14] LABS: URINE RBC 6.6 /hpf (0-4)
[2019-07-20 19:58] LABS: ANISOCYTOSIS 1+; MACROCYTOSIS 1+; OVALOCYTE 1+; PLATELET ESTIMATE ADEQUATE
== END 2019-07-20 18:35 | disposition home or self-care (01) ==
LOC: JER 15:41 → JERFT 15:41
DX: O26.891 Other specified pregnancy related conditions, first trimester (principal); O23.41 Unspecified infection of urinary tract in pregnancy, first trimester; Z3A.01 Less than 8 weeks gestation of pregnancy; Z86.2 Personal history of diseases of the blood and blood-forming organs and certain disorders involving the immune mechanism
CPT/HCPCS: 36415; 76817-TC; 80048; 81003; 84702; 84703; 85025; 86850; 86900; 86901; 99281-25

== ENCOUNTER 2019-11-05 09:24 | Emergency (ER) | payer OTHER ==
[2019-11-05 09:47] VITALS: BMI 31.1
[2019-11-05] MEDS ORDERED: KETOROLAC TROMETHAMINE 30 MG/1 ML VIAL IVPUSH ONE (11:28)
[2019-11-05] MEDS ORDERED: ONDANSETRON 4 MG/2 ML VIAL IVPUSH ONE (11:28)
[2019-11-05] MEDS ORDERED: SODIUM CHLORIDE 0.9% 500 ML INFUS.BAG IV ONE (11:28)
--- NOTE | 2019-11-05 11:34 | PDOC ---
History of Present Illness - General Chief Complaint: Pain, Acute Stated Complaint: ABD PAIN Time Seen by Provider: 11/05/19 11:04 - History of Present Illness Initial Comments: 11/05/19 11:29 CHIEF COMPLAINT: abdominal pain and vomiting HISTORY OF PRESENT ILLNESS: 29 yo A1 presents to ED with acute onset abdominal pain and vomiting since this morning. Patient reports severe RUQ/epigastric pain that is intermittently. Patient denies any fever or diarrhea but reports chills. Patient denies but reports having an ~3 months ago. No recent travel or sick contacts. PAST MEDICAL HISTORY: Denies past medical history FAMILY HISTORY: Denies SOCIAL HISTORY: Denies tobacco, alcohol, illicit drug use. SURGICAL HISTORY: ALLERGIES: No known drug allergies REVIEW OF SYSTEMS General/Constitutional: Denies fever or chills. Denies weakness, weight change. HEENT: Denies change in vision. Denies ear pain or discharge. Denies sore throat. Cardiovascular: Denies chest pain or shortness of breath. Respiratory: Denies cough, wheezing, or hemoptysis. Gastrointestinal: 4 episodes of vomiting since this morning, RUQ/epigastric pain. Denies rectal bleeding. Genitourinary: Denies dysuria, frequency, or change in urination. Musculoskeletal: Denies joint or muscle swelling or pain. Denies neck or back pain. Skin and breasts: Denies rash or easy bruising. Neurologic: Denies headache, vertigo, loss of consciousness, or loss of sen sation. Psychiatric: Denies depression or anxiety. PHYSICAL EXAM General Appearance: Tearful, uncomfortable appearing. Appropriately dressed. HEENT: EOMI, PERRLA, normal ENT inspection, normal voice, TMs normal, pharynx normal. No conjunctival pallor. No photophobia, scleral icterus. Neck: Supple. Trachea midline. No tenderness, rigidity, carotid bruit, stridor, lymphadenopathy, or thyromegaly. Respiratory/Chest: Lungs CTAB. No shortness of breath, chest tenderness, respiratory distress, accessory muscle use. No crackles, rales, rhonchi, stridor, wheezing, dullness Cardiovascular: RRR. S1, S2. No JVD, murmur, bradycardia, tachycardia. Vascular Pulses: Dorsalis-Pedis (R): 2+, Dorsalis-Pedis (L): 2+ Gastrointestinal/Abdominal: TTP to epigastrum and RUQ. Normal bowel sounds. Abdomen soft, non-distended. No organomegaly, pulsatile mass, guarding, hernia, hepatomegaly, splenomegaly. Lymphatic: No adenopathy, tenderness. Musculoskeletal/Extremities: Normal inspection. FROM of all extremities, normal capillary refill. Pelvis Stable. No CVA tenderness. No tenderness to extremities, pedal edema, swelling, erythema or deformity. Integumentary: Appropriate color, dry, warm. 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 Fully oriented, alert. Appropriate mood/affect. Motor strength 5/5. No appreciable EOM palsy, facial droop or sensory deficit. Past History - Past Medical History Allergies/Adverse Reactions: Allergies Allergy/AdvReac Type Severity Reaction Status Date / Time No Known Allergies Allergy Verified 11/05/19 09:43 Home Medications: Ambulatory Orders Dicyclomine HCl [Bentyl -] 20 mg PO Q8H #21 tablet 11/05/19 Ferrous Sulfate [Iron] 325 mg PO DAILY 11/05/19 Ondansetron [Zofran *Odt*] 4 mg SL TID #21 od.tablet 11/05/19 Anemia: Yes Asthma: No Cancer: No Cardiac Disorders: No COPD: No Diabetes: No HTN: No Seizures: No Thyroid Disease: No Other medical history: influenza 08/2019 - Immunization History Immunization Up to Date: Yes - Psycho Social/Smoking Cessation Hx Smoking Status: No Smoking History: Never smoked Have you smoked in the past 12 months: No Number of Cigarettes Smoked Daily: 0 Hx Alcohol Use: No Drug/Substance Use Hx: No Substance Use Type: None Hx Substance Use Treatment: No *Physical Exam - Vital Signs Last Vital Signs Temp Pulse Resp BP Pulse Ox 98 F 92 H 18 104/61 98 11/05/19 09:45 11/05/19 09:45 11/05/19 09:45 11/05/19 09:45 11/05/19 09:45 ED Treatment Course - LABORATORY CBC & Chemistry Diagram: 11/05/19 11:40 11/05/19 11:40 - RADIOLOGY Radiology Studies Ordered: Category Date Time Status ABDOMEN & PELVIS CT W/O CONTR [CT] Stat CT Scan 11/05/19 11:28 Ordered Medical Decision Making - Medical Decision Making 11/05/19 11:34 29 yo A1 presents to ED with acute onset abdominal pain and vomiting since this morning. -labs, urine -zofran, toradol -CT 11/05/19 14:[address] results. Patient reports pain has returned. -morphine CT suggestive of ruptured ovarian cyst. Possible enteritis. Will cover with abx, f/u with [facility] and GI. Advised patient to take medication as prescribed and follow up with [facility] and GI within the next week. Advised patient of signs and symptoms for return to ED. Patient verbalized understanding and agrees to plan. Discharge - Discharge Information Problems reviewed: Yes Clinical Impression/Diagnosis: Gastroenteritis, Ruptured ovarian cyst Condition: Stable Disposition: HOME - Admission No - Additional Discharge Information Prescriptions: Dicyclomine HCl [Bentyl -] 20 mg PO Q8H #21 tablet Ondansetron [Zofran *Odt*] 4 mg SL TID #21 od.tablet - Follow up/Referral Referrals: Doc Moore MD [Staff Physician] - Franco Posada MD [Staff Physician] - - Patient Discharge Instructions Patient Printed Discharge Instructions: DI for Viral Gastroenteritis -- Adult, DI for Ovarian Cyst Additional Instructions: Please take medications as prescribed. As discussed please follow-up with [facility] and GI within the next week. If you develop any new or worsening symptoms, including worsening pain, persistent vomiting, fever, diarrhea, or any other concerning issues, please return to the ER. - Post Discharge Activity
[2019-11-05] MEDS ORDERED: ONDANSETRON 4 MG/2 ML VIAL ONE (11:44)
[2019-11-05] MEDS ORDERED: KETOROLAC TROMETHAMINE 15 MG/ML VIAL ONE (11:44)
[2019-11-05 12:05] LABS: BASO % 0.3 % (0-2.0); EOS % 0.5 % (0-4.5); HEMATOCRIT 38.8 % (32.4-45.2); HEMOGLOBIN 12.8 GM/dL (10.7-15.3); LYMPH % 5.5 % (8-40); MCH 24.4 pg (25.7-33.7); MEAN CELL VOLUME 73.9 fl (80-96); NEUT % 90.7 % (42.8-82.8); PLATELET COUNT 291 K/MM3 (134-434); RBC 5.26 M/mm3 (3.60-5.2); RDW 21.4 % (11.6-15.6); WHITE BLOOD COUNT 14.2 K/mm3 (4.0-10.0)
[2019-11-05 12:08] LABS: HCG,QUALITATIVE URINE Negative
[2019-11-05 12:09] LABS: EPI CELLS 8.4 /HPF (0-5/HPF); HYALINE CASTS 5 /lpf (0-8); URINE APPEARANCE CLOUDY; URINE BACTERIA 168.3 /hpf (NEGATIVE); URINE BILIRUBIN NEGATIVE (NEGATIVE); URINE COLOR YELLOW; URINE GLUCOSE (UA) NEGATIVE (NEGATIVE); URINE KETONE NEGATIVE (NEGATIVE); URINE LEUK ESTERASE TRACE (NEGATIVE); URINE NITRITE NEGATIVE (NEGATIVE); URINE PROTEIN NEGATIVE (NEGATIVE); URINE RBC 2 /hpf (0-4); URINE UROBILINOGEN 0.2 mg/dL (0.2-1.0); URINE WBC 6 /hpf (0-5)
[2019-11-05 12:25] LABS: ALBUMIN 3.9 g/dl (3.4-5.0); BILIRUBIN,TOTAL 0.5 mg/dL (0.2-1); BLOOD UREA NITROGEN 14.7 mg/dL (7-18); CALCIUM 8.6 mg/dL (8.5-10.1); CREATININE 0.5 mg/dL (0.55-1.3); POTASSIUM 3.9 mmol/L (3.5-5.1)
[2019-11-05] MEDS ORDERED: morphine CARPU-JECT 2 MG/1 ML DISP.SYRIN IVPUSH ONE (14:35)
[2019-11-05] MEDS ORDERED: MORPHINE SULFATE 2 MG/ML VIAL ONE (14:53)
[2019-11-05 15:26] LABS: ANISOCYTOSIS 1+; MACROCYTOSIS 0; OVALOCYTE 1+; PLATELET ESTIMATE NORMAL
[2019-11-05] MEDS ORDERED: DICYCLOMINE HCL 20 MG TABLET PO ONE (15:44)
[2019-11-05] MEDS ORDERED: FAMOTIDINE 20 MG/50 ML IVPB 20 MG/50 ML MG IVPB ONE ×2 (15:49→16:01)
[2019-11-05] MEDS ORDERED: DICYCLOMINE HCL 10 MG CAPSULE ONE (16:01)
[2019-11-05 16:23] VITALS: BP 127/79; PULSE 74; TEMP 98.5
== END 2019-11-05 16:27 | disposition home or self-care (01) ==
LOC: JER 09:24
PROC: 3E033GC Introduction of Other Therapeutic Substance into Peripheral Vein, Percutaneous Approach (ICD-10-PCS; principal; 2019-11-05)
PROC: 3E0333Z Introduction of Anti-inflammatory into Peripheral Vein, Percutaneous Approach (ICD-10-PCS; 2019-11-05)
PROC: 3E033NZ Introduction of Analgesics, Hypnotics, Sedatives into Peripheral Vein, Percutaneous Approach (ICD-10-PCS; 2019-11-05)
DX: N83.209 Unspecified ovarian cyst, unspecified side (principal); K52.9 Noninfective gastroenteritis and colitis, unspecified; D64.9 Anemia, unspecified
CPT/HCPCS: 36415; 74177-TC; 80053; 81003; 83690; 84703; 85025; 87086; 96365; 96375; 99285-25; Q9967

== ENCOUNTER 2020-04-17 15:30 | Emergency (ER) | payer OTHER ==
[2020-04-17 15:42] VITALS: BP 105/54; PULSE 85; TEMP 98.8; BMI 24.7
[2020-04-17] MEDS ORDERED: MAG HYDROX/AL HYDROX/SIMETH 30 ML UNIT-DOSE CUP PO ONE (16:23)
[2020-04-17] MEDS ORDERED: LIDOCAINE VISCOUS 2% ORAL/TOP 20 ML UNIT-DOSE CUP MM ONE (16:24)
[2020-04-17] MEDS ORDERED: LIDOCAINE VISCOUS 2% ORAL/TOP 20 ML UNIT-DOSE CUP ONE (16:31)
[2020-04-17] MEDS ORDERED: MAG HYDROX/AL HYDROX/SIMETH 30 ML UNIT-DOSE CUP ONE (16:32)
--- NOTE | 2020-04-17 17:03 | PDOC ---
History of Present Illness - General Chief Complaint: Pain, Acute Stated Complaint: SORE THROAT Time Seen by Provider: 04/17/20 15:47 History Source: Patient Exam Limitations: No Limitations - History of Present Illness Initial Comments: 04/17/20 17:31 29-year-old female presents to ED with complaints of epigastric burning since this morning associated with sore throat since last night. Patient states difficulty swallowing but denies fever, chills, dental issues, change in diet recent illness or recent sick contacts Is this a multiple visit Asthma Patient?: No Timing/Duration: 24 hours Severity: mild Associated Symptoms: reports: other Past History - Travel History Traveled outside of the country in the last 30 days: No Close contact w/someone who was outside of country & ill: No - Medical History Allergies/Adverse Reactions: Allergies Allergy/AdvReac Type Severity Reaction Status Date / Time No Known Allergies Allergy Verified 04/17/20 15:39 Home Medications: Ambulatory Orders NK [No Known Home Medication] 04/17/20 Anemia: Yes Asthma: No Cancer: No Cardiac Disorders: No COPD: No Diabetes: No HTN: No Seizures: No Thyroid Disease: No - Reproductive History Is Patient Now?: No - Immunization History Immunization Up to Date: Yes - Psycho-Social/Smoking History Patient Lives Alone: No Lives with/in: spouse/SO Smoking Status: No Smoking History: Never smoked Have you smoked in the past 12 months: No Number of Cigarettes Smoked Daily: 0 - Substance Abuse Hx (Audit-C & DAST Scrn) How often the patient has a drink containing alcohol: Monthly or less Score: In Men: 4 or > Positive; In Women: 3 or > Positive: 1 Screen Result (Pos requires Nsg. Audit-10AR): Negative In the last yr the pt used illegal drug/Rx for NonMed reason: No Score: Yes response is considered Positive: 0 Screen Result (Positive result requires Nsg. DAST-10): Negative Review of Systems - Review of Systems Able to Perform ROS?: Yes Is the patient limited Mohawk proficient: No Constitutional: No: Symptoms Reported HEENTM: Yes: Throat Pain Respiratory: No: Symptoms reported Cardiac (ROS): No: Symptoms Reported ABD/GI: Yes: Indigestion : No: Symptoms Reported Musculoskeletal: No: Symptoms Reported Integumentary: No: Symptoms Reported Neurological: No: Symptoms reported Endocrine: No: Symptoms Reported *Physical Exam - Vital Signs Last Vital Signs Temp Pulse Resp BP Pulse Ox 98.8 F 85 18 105/54 L 99 04/17/20 15:40 04/17/20 15:40 04/17/20 15:40 04/17/20 15:40 04/17/20 15:40 - Physical Exam General Appearance: Yes: Nourished, Appropriately Dressed. No: Apparent Distress HEENT: positive: EOMI, Pharynx Normal. negative: Pale Conjunctivae Neck: positive: Supple Respiratory/Chest: positive: Lungs Clear, Normal Breath Sounds. negative: Respiratory Distress, Accessory Muscle Use Cardiovascular: positive: Regular Rhythm, Regular Rate. negative: Murmur Gastrointestinal/Abdominal: positive: Normal Bowel Sounds, Soft, Tenderness (mild epigastric) Musculoskeletal: negative: CVA Tenderness Extremity: positive: Normal Inspection Integumentary: positive: Normal Color, Warm, Moist Neurologic: positive: Motor Strength 5/5 (ambulatory) Medical Decision Making - Medical Decision Making 04/17/20 17:33 chief complaint: Patient with sore throat along with indigestion since last night. Patient has no other complaints this time. Patient denies change in diet or recent illness. Exam: Patient with normal physical exam except for mild epigastric tenderness. Plan: Rapid strep along with Maalox and lidocaine order 04/17/20 17:39 Patient states for better. Results for strep pending. Patient will be notified of results via phone patient in the meanwhile understands to take Motrin for discomfort and to take MaaloX for GI burning 04/17/20 17:56 Laboratory Tests 04/17/20 16:50 Group A Strep Rapid Negative Discharge - Discharge Information Problems reviewed: Yes Clinical Impression/Diagnosis: Sore throat Condition: Improved Disposition: HOME - Follow up/Referral - Patient Discharge Instructions Patient Printed Discharge Instructions: Sore Throat, DI for Epigastric Pain Additional Instructions: Please take Motrin for sore throat discomfort. Drink plenty of fluids eat soft foods and otherwise take Maalox for GI discomfort. You will be notified of your strep results when it results today - Post Discharge Activity
== END 2020-04-17 17:45 | disposition home or self-care (01) ==
LOC: JER 15:30
DX: J02.9 Acute pharyngitis, unspecified (principal)
CPT/HCPCS: 87070; 87880; 99283-25

== ENCOUNTER 2020-07-26 18:33 | Emergency (ER) | payer OTHER ==
[2020-07-26 18:47] VITALS: BP 123/80; PULSE 83; TEMP 97.9; BMI 29.1
[2020-07-26] MEDS ORDERED: ACETAMINOPHEN 325 MG TABLET (FP) PO ONE (19:50)
[2020-07-26] MEDS ORDERED: ACETAMINOPHEN 325 MG TABLET (FP) ONE (20:11)
[2020-07-26 20:56] LABS: BASO % 0.5 % (0-2.0); EOS % 0.7 % (0-4.5); HEMATOCRIT 30.5 % (32.4-45.2); HEMOGLOBIN 9.3 GM/dL (10.7-15.3); LYMPH % 22.4 % (8-40); MCHC 30.6 g/dl (32.0-36.0); MEAN CELL VOLUME 63.8 fl (80-96); MEAN PLT VOLUME 7.7 fl (7.5-11.1); MONO % 5.1 % (3.8-10.2); NEUT % 71.3 % (42.8-82.8); PLATELET COUNT 327 K/MM3 (134-434); RBC 4.78 M/mm3 (3.60-5.2); RDW 17.7 % (11.6-15.6); WHITE BLOOD COUNT 10.1 K/mm3 (4.0-10.0)
[2020-07-26 21:01] LABS: MCH 19.5 pg (25.7-33.7)
[2020-07-26 21:13] LABS: CHLORIDE 107 mmol/L (98-107); POTASSIUM 3.8 mmol/L (3.5-5.1); SODIUM 138 mmol/L (136-145)
[2020-07-26 21:14] LABS: EPI CELLS >36 /uL (0-25.1); HCG,QUALITATIVE URINE Negative; HYALINE CASTS 3 /uL (0-3.1); URINE APPEARANCE CLOUDY; URINE BACTERIA 2573 /uL (0-1359); URINE BILIRUBIN NEGATIVE (NEGATIVE); URINE COLOR YELLOW; URINE GLUCOSE (UA) NEGATIVE (NEGATIVE); URINE KETONE NEGATIVE (NEGATIVE); URINE LEUK ESTERASE 1+ (NEGATIVE); URINE NITRITE NEGATIVE (NEGATIVE); URINE PROTEIN NEGATIVE (NEGATIVE); URINE RBC 8 /uL (0-23.9); URINE WBC 47 /uL (0-25.8)
[2020-07-26 21:16] LABS: ALBUMIN 3.6 g/dl (3.4-5.0); ANION GAP 8 MMOL/L (8-16); BLOOD UREA NITROGEN 10.6 mg/dL (7-18); CALCIUM 8.6 mg/dL (8.5-10.1); CO2 23 mmol/L (21-32); GLUCOSE,RANDOM 94 mg/dL (74-106)
[2020-07-26 21:19] LABS: CREATININE 0.5 mg/dL (0.55-1.3); SGOT/AST 21 U/L (15-37); SGPT/ALT 25 U/L (13-61)
[2020-07-26 21:20] LABS: BILIRUBIN,TOTAL 0.2 mg/dL (0.2-1)
[2020-07-26 21:21] LABS: TOT PROT 7.6 g/dl (6.4-8.2)
[2020-07-26 21:22] LABS: ALK PHOS 105 U/L (45-117)
== END 2020-07-26 23:58 | disposition home or self-care (01) ==
LOC: JER 18:33
DX: N30.00 Acute cystitis without hematuria (principal); N83.201 Unspecified ovarian cyst, right side
CPT/HCPCS: 36415; 76830-TC; 80053; 81003; 84702; 84703; 85025; 86850; 86900; 86901; 87086; 99284-25

== ENCOUNTER 2021-09-24 22:32 | Emergency (ER) | payer OTHER ==
[2021-09-24 22:49] VITALS: BMI 28.1
[2021-09-24] MEDS ORDERED: ONDANSETRON 4 MG/2 ML VIAL IVPUSH ONE (22:59)
[2021-09-24] MEDS ORDERED: MAG HYDROX/AL HYDROX/SIMETH 30 ML UNIT-DOSE CUP PO ONE (22:59)
[2021-09-24] MEDS ORDERED: FAMOTIDINE 20 MG/50 ML IVPB 20 MG/50 ML MG IVPB ONE ×2 (22:59→23:06)
[2021-09-24] MEDS ORDERED: SODIUM CHLORIDE 0.9% 500 ML INFUS.BAG IV ONE (23:01)
[2021-09-24] MEDS ORDERED: MAG HYDROX/AL HYDROX/SIMETH 30 ML UNIT-DOSE CUP ONE (23:06)
[2021-09-24] MEDS ORDERED: ONDANSETRON 4 MG/2 ML VIAL ONE (23:06)
[2021-09-24 23:34] LABS: BASO % 0.5 % (0-2.0); EOS % 0.7 % (0-4.5); EPI CELLS >36 /uL (0-25.1); HEMATOCRIT 42.2 % (32.4-45.2); HEMOGLOBIN 14.4 GM/dL (10.7-15.3); HYALINE CASTS 0 /uL (0-3.1); LYMPH % 17.7 % (8-40); MCH 29.1 pg (25.7-33.7); MCHC 34.1 g/dl (32.0-36.0); MEAN CELL VOLUME 85.3 fl (80-96); MEAN PLT VOLUME 7.6 fl (7.5-11.1); MONO % 5.7 % (3.8-10.2); NEUT % 75.4 % (42.8-82.8); PLATELET COUNT 235 10^3/uL (134-434); RBC 4.94 M/mm3 (3.60-5.2); RDW 15.2 % (11.6-15.6); URINE APPEARANCE CLOUDY; URINE BACTERIA 1200 /uL (0-1359); URINE BILIRUBIN NEGATIVE (NEGATIVE); URINE COLOR YELLOW; URINE GLUCOSE (UA) NEGATIVE (NEGATIVE); URINE KETONE NEGATIVE (NEGATIVE); URINE LEUK ESTERASE 2+ (NEGATIVE); URINE NITRITE NEGATIVE (NEGATIVE); URINE PROTEIN NEGATIVE (NEGATIVE); URINE RBC 67 /uL (0-23.9); URINE WBC 122 /uL (0-25.8); WHITE BLOOD COUNT 12.1 K/mm3 (4.0-10.0)
[2021-09-24 23:54] LABS: CHLORIDE 107 mmol/L (98-107); SODIUM 137 mmol/L (136-145)
[2021-09-24 23:56] LABS: CALCIUM 8.2 mg/dL (8.5-10.1); GLUCOSE,RANDOM 122 mg/dL (74-106)
[2021-09-24 23:57] LABS: ALBUMIN 3.9 g/dl (3.4-5.0); ANION GAP 6 MMOL/L (8-16); BLOOD UREA NITROGEN 12.9 mg/dL (7-18); CO2 25 mmol/L (21-32); LIPASE 155 U/L (73-393); MAGNESIUM 2.1 mg/dL (1.8-2.4)
[2021-09-25] LABS: CREATININE 0.7 mg/dL (0.55-1.3); SGOT/AST 26 U/L (15-37); SGPT/ALT 30 U/L (13-61)
[2021-09-25 00:01] LABS: BILIRUBIN,TOTAL 0.3 mg/dL (0.2-1); TOT PROT 7.8 g/dl (6.4-8.2)
[2021-09-25 00:03] LABS: ALK PHOS 100 U/L (45-117)
[2021-09-25 00:54] VITALS: BP 123/81; PULSE 81; TEMP 99
== END 2021-09-25 00:57 | disposition home or self-care (01) ==
LOC: JER 22:32
PROC: 3E033NZ Introduction of Analgesics, Hypnotics, Sedatives into Peripheral Vein, Percutaneous Approach (ICD-10-PCS; principal; 2021-09-24)
PROC: 3E033GC Introduction of Other Therapeutic Substance into Peripheral Vein, Percutaneous Approach (ICD-10-PCS; 2021-09-24)
DX: R10.13 Epigastric pain (principal)
CPT/HCPCS: 36415; 80053; 81003; 83690; 83735; 84702; 85025; 93005; 93010; 96365; 96375; 99284-25; C9803; U0003; U0005

== ENCOUNTER 2021-11-05 20:39 | Emergency (ER) | payer OTHER ==
[2021-11-05 20:49] VITALS: BP 113/72; PULSE 79; TEMP 98.3; BMI 28.1
[2021-11-05] MEDS ORDERED: FAMOTIDINE 20 MG/50 ML IVPB 20 MG/50 ML MG IVPB ONE (21:23)
[2021-11-05] MEDS ORDERED: ACETAMINOPHEN 1000 MG/100 ML BAG IVPB ONE (21:23)
[2021-11-05] MEDS ORDERED: MAG HYDROX/AL HYDROX/SIMETH 30 ML UNIT-DOSE CUP PO ONE (22:28)
== END 2021-11-05 23:08 | disposition home or self-care (01) ==
LOC: JER 20:39
DX: K29.70 Gastritis, unspecified, without bleeding (principal)
CPT/HCPCS: 99283-25

== ENCOUNTER 2022-01-23 21:34 | Emergency (ER) | payer OTHER ==
[2022-01-23] MEDS ORDERED: IBUPROFEN 600 MG TABLET (FP) PO ONE ×2 (21:50→21:52)
[2022-01-23] MEDS ORDERED: SODIUM CHLORIDE 1,000 ML IV STA (21:50)
[2022-01-23 21:56] VITALS: BMI 29.6
[2022-01-23 23:00] VITALS: BP 127/86; PULSE 113; TEMP 100.2
== END 2022-01-23 23:13 | disposition home or self-care (01) ==
LOC: JER 21:34
PROC: 3E0337Z Introduction of Electrolytic and Water Balance Substance into Peripheral Vein, Percutaneous Approach (ICD-10-PCS; principal; 2022-01-23)
DX: J06.9 Acute upper respiratory infection, unspecified (principal)
CPT/HCPCS: 0241U-QW; 99284-25

== ENCOUNTER 2022-05-23 22:21 | Emergency (ER) | payer OTHER ==
[2022-05-23 22:39] VITALS: BP 111/72; PULSE 71; RESP 16; TEMP 98.1; BMI 30.2
[2022-05-23 23:59] LABS: EPI CELLS 23 /uL (0-25.1); HYALINE CASTS 1 /uL (0-3.1); URINE APPEARANCE CLEAR; URINE BACTERIA 208 /uL (0-1359); URINE BILIRUBIN NEGATIVE (NEGATIVE); URINE COLOR YELLOW; URINE GLUCOSE (UA) NEGATIVE (NEGATIVE); URINE KETONE TRACE (NEGATIVE); URINE LEUK ESTERASE NEGATIVE (NEGATIVE); URINE NITRITE NEGATIVE (NEGATIVE); URINE PROTEIN NEGATIVE (NEGATIVE); URINE WBC 15 /uL (0-25.8)
[2022-05-24] LABS: HCG,QUALITATIVE URINE Negative
[2022-05-24] MEDS ORDERED: CEPHALEXIN MONOHYDRATE 500 MG CAPSULE (UD) PO ONE (00:03)
[2022-05-24] MEDS ORDERED: CEPHALEXIN MONOHYDRATE 500 MG CAPSULE (UD) ONE (00:17)
[2022-05-24 00:24] LABS: URINE RBC 50.5 /uL (0-23.9)
== END 2022-05-24 00:24 | disposition home or self-care (01) ==
LOC: JER 22:21
DX: N39.0 Urinary tract infection, site not specified (principal)
CPT/HCPCS: 81003; 84703; 87086; 99283-25